=== PATIENT | male | born 1945 | race African-American/Black ===

== ENCOUNTER 2019-05-08 15:30 | Emergency (ER) | payer MEDICARE ==
[~2019-05-08] VITALS: Ht 172.7 cm; Wt 78.0 kg
[2019-05-08] MEDS ORDERED: SODIUM CHLORIDE 0.9% 1,000 ML IV ONE (16:03)
[2019-05-08 16:29] LABS: BASOPHILS % 0.7 % (0.0-2.0); EOSINOPHILS % 0.8 % (0.0-5.0); HEMATOCRIT. 38.9 % (42.0-52.0); HEMOGLOBIN. 13.5 g/dL (14.0-18.0); LYMPHOCYTES % 30.9 % (20.0-50.0); MEAN CORPUSCULAR HEMOGLOBIN 31.4 pg (28.0-32.0); MEAN PLATELET VOLUME 6.6 fl (7.4-10.4); NEUTROPHILS % 56.6 % (40.0-76.0); PLATELET 281 x1000/uL (130-400); RED BLOOD CELL COUNT 4.28 mill/uL (4.7-6.1); RED CELL DISTRIBUTION WIDTH 14.6 % (11.6-14.6)
[2019-05-08 16:36] LABS: CHLORIDE 109 mEq/L (98-107)
[2019-05-08 16:37] LABS: INR 1.1; PARTIAL THROMBOPLASTIN TIME 26.4 sec (23.4-31.0); PROTHROMBIN TIME 11.6 sec (9.6-11.0)
[2019-05-08 16:41] LABS: ETHANOL BLOOD < 10 mg/dL
[2019-05-08] MEDS ORDERED: LACTULOSE 20G/30ML UDC PO ONE (17:45)
[2019-05-08] MEDS ORDERED: LEVETIRACETAM 500MG PREMIX 100 ML IV ONE (18:15)
[2019-05-08] MEDS ORDERED: NICARDIPINE 40MG/200ML PREMIX 200 ML IV SCH (19:45)
[2019-05-08 19:57] VITALS: BP 112/80
== END 2019-05-08 20:00 | disposition short-term general hospital (02) ==
LOC: ER 15:30
DX: R41.82 Altered mental status, unspecified (principal); K72.90 Hepatic failure, unspecified without coma; I62.9 Nontraumatic intracranial hemorrhage, unspecified
CPT/HCPCS: 36415; 70450; 71045; 80053; 80320; 82140; 83880; 84484; 85025; 85610; 85730; 93005; 96361; 96365; 99291; J1953; J7030; G0480